=== PATIENT | female | born 2000 | race American Indian/Alaskan Native ===

== ENCOUNTER 2019-04-23 17:32 | Emergency (ER) | payer OTHER ==
--- NOTE | 2019-04-23 18:42 | Event Note ---
ED Screening Note Date of service: 04/23/19 Time: 18:41 ED Screening Note: 19 y o f presents with dizziness x 2 days near syncopal episode x 3 lmp: unsure no pain This initial assessment/diagnostic orders/clinical plan/treatment(s) is/are subject to change based on patients health status, clinical progression and re- assessment by fellow clinical providers in the ED. Further treatment and workup at subsequent clinical providers discretion. Patient/guardian urged not to elope from the ED as their condition may be serious if not clinically assessed and managed. Initial orders include: labs acc eval
[2019-04-23] MEDS ORDERED: MECLIZINE 25 MG TAB PO ONE (18:43)
[2019-04-23 19:19] LABS: Bilirubin,Urine NEG (Negative); Blood,Urine NEG (Negative); Color,Urine Yellow (Yellow); Protein,Urine <15 mg/dL mg/dL (Negative); Urobilinogen,Urine < 2.0 mg/dL (<2.0); WBC,Urine < 1.0 /HPF (0.0-6.0)
[2019-04-23 19:24] LABS: Amphetamine Screen,Urine PRESUMPTIVE NEGATIVE; Benzodiazepines Screen,Urine PRESUMPTIVE NEGATIVE; Cannabinoid Screen,Urine PRESUMPTIVE NEGATIVE; Cocaine Screen,Urine PRESUMPTIVE NEGATIVE; Methadone Screen,Urine PRESUMPTIVE NEGATIVE; Opiate Screen,Urine PRESUMPTIVE NEGATIVE
[2019-04-23] MEDS ORDERED: SODIUM CHLORIDE 0.9% 1000 ML 1,000 ML IV ONE (19:30)
[2019-04-23 20:01] LABS: Basophils % (Auto) 0.7 % (0.0-1.8); Eosinophils # (Auto) 0.1 K/mm3 (0.0-0.4); Hematocrit 42.7 % (30.3-42.9); Hemoglobin 14.3 gm/dl (10.1-14.3); Lymphocytes # (Auto) 1.9 K/mm3 (1.2-5.4); Lymphocytes % (Auto) 37.4 % (13.4-35.0); Mean Corpuscular HGB Conc 34 % (30-34); Mean Corpuscular Volume 97 fl (79-97); Monocytes # (Auto) 0.3 K/mm3 (0.0-0.8); Monocytes % (Auto) 6.9 % (0.0-7.3); Platelet Count 259 K/mm3 (140-440); Red Blood Count 4.41 M/mm3 (3.65-5.03)
[2019-04-23 20:10] LABS: Alanine Aminotransferase 13 units/L (7-56); Albumin 4.7 g/dL (3.9-5); BUN/Creatinine Ratio 14; Blood Urea Nitrogen 7 mg/dL (7-17); Calcium 9.3 mg/dL (8.4-10.2); Hemolysis Index 7
[2019-04-23 20:11] LABS: Bilirubin,Direct < 0.2 mg/dL (0-0.2)
--- NOTE | 2019-04-23 20:43 | XRay Report ---
CHEST PA AND LATERAL VIEWS INDICATION: DIZZINESS. COMPARISON: None FINDINGS: Support devices: None Heart: Normal Lungs/Pleura: No acute pulmonary or pleural findings. IMPRESSION: 1. No significant abnormality. Signer Name: Salyt Miller MD Signed: 04/23/2019 8:39 PM Workstation Name: [id number]
--- NOTE | 2019-04-23 21:26 | Cat Scan Report ---
CT BRAIN: 04/23/2019 INDICATION / CLINICAL INFORMATION: DIZZINESS. COMPARISON: None available. FINDINGS: BRAIN/INTRACRANIAL STRUCTURES: Unenhanced CT images of the brain demonstrate no evidence of acute int racranial abnormality. Ventricles and sulci are normal in size and shape. There is no evidence of ischemic injury, hemorrhage, or mass. There are no abnormal extra-axial fluid collections. EXTRACRANIAL STRUCTURES: Unremarkable. IMPRESSION: No acute abnormality. Negative unenhanced CT of the brain. All CT scans at this location are performed using dose reduction to ALARA by means of automated expos ure control. Signer Name: Alberto Boles MD Signed: 04/23/2019 9:22 PM Workstation Name: [id number]
--- NOTE | 2019-04-24 00:39 | Nuclear Medicine Report ---
Nuclear medicine pulmonary VQ scan INDICATION: Acute onset chest pain with dyspnea. Elevated d-dimer TECHNIQUE: A total of 5.2 mCi of technetium 99 MAA and 20.2 mCi of xenon-133 was administered. COMPARISON: Radiograph 04/23/2019 FINDINGS: Normal wash-in and washout of xenon radiotracer. No mismatch perfusion defect IMPRESSION: Low probability for PTE. Signer Name: Francis Guillory MD Signed: 04/24/2019 12:35 AM Workstation Name: [id number]
--- NOTE | 2019-04-24 02:19 | Emergency Department Report ---
ED General Adult HPI - General Chief complaint: Dizziness Stated complaint: LIGHT HEADED Time Seen by Provider: 04/23/19 18:41 Source: patient Mode of arrival: Ambulatory Limitations: No Limitations - History of Present Illness Initial comments: Patient is a nulliparous 19-year-old -Citizen Of [place] female with no past medical history who presents to the ED with complaint of acute onset persistent intermittent dizziness, lightheadedness for the last 2 days, and 2 near syncopal episodes in the last 8 hours intermittently. Patient denies chest pain, s hortness of breath, headache, change in vision, palpitations, fever, chills, cough, sore throat, abdominal pain, nausea and vomiting or syncope or seizures MD Complaint: lightheadedness, dizziness, near syncope -: Sudden, days(s) (2) Location: head, chest Radiation: non-radiation Severity scale (0 -10): 0 Consistency: intermittent Improves with: none Worsens with: none Associated Symptoms: denies other symptoms, malaise, syncope (near syncope). denies: confusion, chest pain, cough, diaphoresis, fever/chills, headaches, loss of appetite, nausea/vomiting, rash, seizure, shortness of breath, weakness Treatments Prior to Arrival: none - Related Data Previous Rx's Medication Instructions Recorded Last Taken Type Meclizine [Antivert] 25 mg PO Q8H PRN #30 tablet 04/24/19 Unknown Rx Allergies Allergy/AdvReac Type Severity Reaction Status Date / Time No Known Allergies Allergy Verified 04/23/19 18:43 ED Review of Systems ROS: Stated complaint: LIGHT HEADED Other details as noted in HPI Constitutional: malaise, weakness. denies: chills, fever Eyes: denies: eye pain, eye discharge, vision change ENT: denies: ear pain, throat pain Respiratory: denies: cough, shortness of breath, wheezing Cardiovascular: denies: chest pain, palpitations Endocrine: no symptoms reported Gastrointestinal: denies: abdominal pain, nausea, diarrhea Genitourinary: denies: urgency, dysuria, discharge Musculoskeletal: denies: back pain, joint swelling, arthralgia Skin: denies: rash, lesions Neurological: weakness, vertigo, other (near syncope). denies: headache, paresthesias Psychiatric: denies: anxiety, depression Hematological/Lymphatic: denies: easy bleeding, easy bruising ED Past Medical Hx - Past Medical History Previous Medical History?: Yes Hx Asthma: Yes - Surgical History Past Surgical History?: No - Social History Smoking Status: Never Smoker Substance Use Type: Alcohol - Medications Home Medications: Home Medications Medication Instructions Recorded Confirmed Last Taken Type Meclizine [Antivert] 25 mg PO Q8H PRN #30 tablet 04/24/19 Unknown Rx ED Physical Exam - General Limitations: No Limitations General appearance: alert, in no apparent distress - Head Head exam: Present: atraumatic, normocephalic, normal inspection - Eye Eye exam: Present: normal appearance, PERRL, EOMI Pupils: Present: normal accommodation - ENT ENT exam: Present: normal exam, normal orophraynx, mucous membranes moist, TM's normal bilaterally, normal external ear exam - Neck Neck exam: Present: normal inspection - Respiratory Respiratory exam: Present: normal lung sounds bilaterally. Absent: respiratory distress, wheezes, rales, stridor, chest wall tenderness, other - Cardiovascular Cardiovascular Exam: Present: regular rate, normal rhythm, normal heart sounds. Absent: systolic murmur, diastolic murmur, rubs, gallop - GI/Abdominal GI/Abdominal exam: Present: soft, normal bowel sounds. Absent: distended, tenderness, guarding, rebound, rigid, hyperactive bowel sounds, hypoactive bowel sounds, organomegaly, mass - Extremities Exam Extremities exam: Present: normal inspection, full ROM, normal capillary refill - Back Exam Back exam: Present: normal inspection, full ROM - Neurological Exam Neurological exam: Present: alert, oriented X3, CN II-XII intact, normal gait, reflexes normal - Psychiatric Psychiatric exam: Present: normal affect, normal mood - Skin Skin exam: Present: warm, dry, intact, normal color. Absent: rash ED Course Vital Signs 04/23/19 18:41 Temperature 98.3 F Pulse Rate 70 Respiratory 18 Rate Blood Pressure 117/73 [Right] O2 Sat by Pulse 100 Oximetry - Reevaluation(s) Reevaluation #1: 04/24/19 02:32 This is a 19-year-old -Citizen Of [place] female with no past medical history presents to the ED with acute onset persistent intermittent lightheadedness and dizziness, and a near-syncopal episode. In the ED, patient is alert and oriented 3 and is not in distress. Physical exam is unremarkable. Patient was treated for dizziness with meclizine and also given normal saline 1 L IV bolus 1. Chest x-ray shows no acute cardiopulmonary abnormalities. Head CT scan without contrast shows no acute intracranial abnormalities or hemorrhage. Lab test results were reviewed and are all nonactionable except d-dimer level of 378.39. VQ scan of the chest to rule out PE shows low probability for PE in this 19-year-old female. On reevaluation, patient sleeping comfortably in the bed and in no acute distress. Patient was discharged home on medications and advised to follow-up with her primary care physician in 7-10 days for reevaluation or return to the ED immediately if symptoms get worse. 04/24/19 02:33 ED Medical Decision Making - Lab Data Result diagrams: 04/23/19 19:33 04/23/19 19:33 - Radiology Data Radiology results: report reviewed, image reviewed Chest x-ray shows no acute cardiopulmonary abnormalities or pneumonitis. Head CT scan without contrast shows no acute intracranial abnormalities or hemorrhage. VQ scan of the chest shows low probability for PE. - Medical Decision Making This is a 19-year-old -Citizen Of [place] female with no past medical history presents to the ED with acute onset persistent intermittent lightheadedness and dizziness, and a near-syncopal episode. In the ED, patient is alert and oriented 3 and is not in distress. Physical exam is unremarkable. Patient was treated for dizziness with meclizine and also given normal saline 1 L IV bolus 1. Chest x-ray shows no acute cardiopulmonary abnormalities. Head CT scan without contrast shows no acute intracranial abnormalities or hemorrhage. Lab test results were reviewed and are all nonactionable except d-dimer level of 378.39. VQ scan of the chest to rule out PE shows low probability for PE in this 19-year-old female. On reevaluation, patient sleeping comfortably in the bed and in no acute distress. Patient was discharged home on medications and advised to follow-up with her primary care physician in 7-10 days for reevaluation or return to the ED immediately if symptoms get worse. - Differential Diagnosis syncope; near syncope; dizziness; sinusitis; ACS; Pneumonia, lightheadeness Critical care attestation.: If time is entered above; I have spent that time in minutes in the direct care of this critically ill patient, excluding procedure time. ED Disposition Clinical Impression: Dizziness, nonspecific, Near syncope Disposition: DC- TO HOME OR SELFCARE Is pt being admited?: No Does the pt Need Aspirin: No Condition: Stable Instructions: Near Syncope (ED), Dizziness (ED) Additional Instructions: Take medications with food, drink plenty of fluids and follow up with your primary care physician in 3-5 days for reevaluation. Return to the ED immediately if symptoms get worse Prescriptions: Meclizine [Antivert] 25 mg PO Q8H PRN #30 tablet PRN Reason: Vertigo Referrals: PRIMARY CARE, [Primary Care Provider] - 3-5 Days Time of Disposition: 02:20 Print Language: GREENLANDIC
[2019-04-24 06:12] VITALS: BP 124/80
== END 2019-04-24 02:48 | disposition home or self-care (01) ==
LOC: ED 17:32
DX: R55 Syncope and collapse (principal); R42 Dizziness and giddiness; J45.909 Unspecified asthma, uncomplicated
CPT/HCPCS: 36415; 70450; 71046; 78582; 80048; 80076; 80307; 81001; 84443; 84484; 84703; 85025; 85379; 96360; 99284; A9540; A9558; J7030

== ENCOUNTER 2019-06-12 16:17 | Emergency (ER) | payer OTHER ==
[2019-06-12 17:01] VITALS: BP 118/71
[2019-06-12 17:53] LABS: Bacteria,Urine 2+ /HPF (Negative); Bilirubin,Urine NEG (Negative); Blood,Urine NEG (Negative); Color,Urine Yellow (Yellow); Mucus,Urine FEW /HPF; Protein,Urine <15 mg/dL mg/dL (Negative); Urobilinogen,Urine < 2.0 mg/dL (<2.0)
== END 2019-06-12 19:40 | disposition left against medical advice (07) ==
LOC: ED 16:17
DX: N76.0 Acute vaginitis (principal); Z53.21 Procedure and treatment not carried out due to patient leaving prior to being seen by health care provider
CPT/HCPCS: 81001

== ENCOUNTER 2019-08-03 18:53 | Emergency (ER) | payer OTHER ==
[2019-08-03 19:23] VITALS: BP 94/64
--- NOTE | 2019-08-03 20:05 | Emergency Department Report ---
Chief Complaint: Urogenital-Female Stated Complaint: POSS BV Time Seen by Provider: 08/03/19 19:58 - HPI History of Present Illness: Pt complains of vaginal discharge x 1.5 weeks. She denies abdominal/pelvic pain, lesions, concern for STI, dyspareunia, vaginal bleeding, dysuria, hematuria or possibility of , or fever/chills/sweats. She states hx of BV and that her symptoms are the same. She states the discharge is white with a fishy odor. - Exam Vital Signs: Vital Signs 08/03/19 19:13 Temperature 98.1 F Pulse Rate 67 Respiratory 18 Rate Blood Pressure 94/64 O2 Sat by Pulse 99 Oximetry Physical Exam: Pt is in no acute distress Heart: RRR Lungs: No respiratory distress Abdomen: Nontender, no distension Psych: normal mood and affect MSE screening note: Focused history and physical exam performed. Due to findings the following was ordered: Pt complains of vaginal discharge x 1.5 weeks. She denies abdominal/pelvic pain, lesions, concern for STI, dyspareunia, vaginal bleeding, dysuria, hematuria or possibility of , or fever/chills/sweats. She states hx of BV and that her symptoms are the same. She states the discharge is white with a fishy odor. Pt denies any redflag symptoms. Abdomen is nontender. She denies possible STI. Pt presents with a non medical emergency. Recommend outpt evaluation and treatment with Dr. Araujo-pt given information. Discussed strict return precautions in detail with pt who states understanding. ED Disposition for MSE Clinical Impression: Vaginal discharge Disposition: MED SCREENING EXAM-LEFT Is pt being admited?: No Condition: Stable Referrals: YUN ARAUJO MD [Staff Physician] - 3-5 Days
== END 2019-08-03 20:30 | disposition left against medical advice (07) ==
LOC: ED 18:53
DX: N89.8 Other specified noninflammatory disorders of vagina (principal)
CPT/HCPCS: 99281